=== PATIENT | male | born 1955 | race Asian ===

== ENCOUNTER 2017-10-21 00:24 | Emergency (ER) | payer SELFPAY ==
[~2017-10-21] VITALS: Ht 175.3 cm; Wt 108.9 kg
[2017-10-21 00:37] VITALS: BP_SYST 154
[2017-10-21] MEDS ORDERED: KETOROLAC TROMETHAMINE 60 MG/2 ML VIAL IM ONE (00:45)
[2017-10-21 01:05] VITALS: BP_SYST 154
== END 2017-10-21 01:05 | disposition home or self-care (01) ==
LOC: SED 00:24
DX: K08.89 Other specified disorders of teeth and supporting structures (principal)
CPT/HCPCS: 96372; 99283; J1885